=== PATIENT | male | born 1945 | race Caucasian/White ===

== ENCOUNTER 2016-06-09 17:28 | Emergency (ER) | payer MEDICARE, BC ==
[2016-06-09 17:40] VITALS: BP 162/90
[2016-06-09] MEDS ORDERED: Tetracaine 0.5% 2 ML Bottle EYEBOTH ONE (17:45)
[2016-06-09] MEDS ORDERED: Ciprofloxacin 0.3% Ophth Soln 2.5 ML Bottle EYEBOTH SCH (18:00)
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
== END 2016-06-09 18:08 | disposition home or self-care (01) ==
LOC: CC.ED 17:28
DX: T26.62XA Corrosion of cornea and conjunctival sac, left eye, initial encounter (principal); T26.61XA Corrosion of cornea and conjunctival sac, right eye, initial encounter; E78.00 Pure hypercholesterolemia, unspecified; I10 Essential (primary) hypertension; J45.909 Unspecified asthma, uncomplicated; Z98.890 Other specified postprocedural states; Z88.8 Allergy status to other drugs, medicaments and biological substances
CPT/HCPCS: 99282

== ENCOUNTER → 2017-03-04 | Day surgery (SDC) | payer MEDICARE, BC ==
[~2017-03-04] MED LIST: Lactated Ringers 1,000 ML IV SCH; Propofol 200 MG/20 ML SDV IV ONE
--- NOTE | 2017-03-04 08:00 | OR ---
DATE OF OPERATION: 03/04/2017 PREOPERATIVE DIAGNOSIS: FOLLOW UP POLYPS. POSTOPERATIVE DIAGNOSIS: FOLLOW UP POLYPS. SURGEON: Baljeet Graham MD PROCEDURE: FULL-LENGTH COLONOSCOPY WITH POLYP REMOVAL X3. ANESTHESIA: QUALITY LEAD. COMPLICATIONS: None. SPECIMEN: Hyperplastic polyps x3. FINDINGS: 1. Full-length colonoscopy. 2. Mild sigmoid diverticulosis. 3. Hyperplastic polyps x3. RECOMMENDATIONS: Follow up colonoscopy in 5-7 years pending path reports. INDICATIONS: The patient has a history of polyps removed in the past. He is due for a routine followup colonoscopy. DESCRIPTION OF PROCEDURE: The patient is prepped and draped, placed in the left lateral decubitus position. A lubricated Olympus colonoscope was inserted and easily advanced to the cecum. Direct visualization of the ileocecal valve and appendiceal orifice was accomplished. The bowel prep was excellent. Upon withdrawal of the scope, the cecum and ascending colon were benign. For the most part, transverse colon was unremarkable; at its most distal portion there was a small flat hyperplastic polyp removed in its entirety with cold forceps biopsy x2. The descending colon was unremarkable. The patient does have a few scattered diverticula through the sigmoid area, very mild in severity. At the distal portion of the sigmoid colon, there was another flat polyp with the appearance of hyperplastic polyp; also removed in its entirety with a cold forceps x2. There were no other signs of colitis, vascular abnormality, or bleeding sites. No inflammatory changes around his diverticula. In the rectal vault, there were two small hyperplastic polyps, right next to one another, both removed with forceps biopsy. Retroflexion of scope in the rectum showed no perianal regions. Air was then suctioned and the scope removed without complication. ANGELA/HAYLIE /[id number]
[2017-03-04 08:02] VITALS: BP 137/79
== END ==
LOC: CC.SDS 06:19
PROVIDERS: ATTEND Family Medicine
DX: Z12.11 Encounter for screening for malignant neoplasm of colon (principal); K63.5 Polyp of colon; K62.1 Rectal polyp; K57.30 Diverticulosis of large intestine without perforation or abscess without bleeding; N40.0 Benign prostatic hyperplasia without lower urinary tract symptoms; E78.00 Pure hypercholesterolemia, unspecified; I10 Essential (primary) hypertension; Z86.010 Personal history of colon polyps; Z88.8 Allergy status to other drugs, medicaments and biological substances; Z91.09 Other allergy status, other than to drugs and biological substances; Z79.899 Other long term (current) drug therapy
CPT/HCPCS: 45380; J2704; J7120; 00810; 88305

== ENCOUNTER 2021-03-06 14:07 | Emergency (ER) | payer MEDICARE, BC ==
[2021-03-06 14:42] VITALS: BP 187/90; PULSE 95
[2021-03-06] MEDS ORDERED: Take Home: predniSONE 20 MG, 2 Tab Pack PO ONE (14:55)
--- NOTE | 2021-03-06 15:01 | EDM.PDOC ---
ED HPI GENERAL MEDICAL PROBLEM - General Chief Complaint: General Stated Complaint: cough, sore throat Time Seen by Provider: 03/06/21 14:50 Source of Information: Reports: Patient History Limitations: Reports: No Limitations - History of Present Illness INITIAL COMMENTS - FREE TEXT/NARRATIVE: Mr. Kinsey is a pleasant 75-year-old male patient that presents to the emergency department having complaints of what he believes may be bronchitis. Patient states his symptoms have gradually worsened over the last couple weeks. Does have an occasional cough. States that he has kind of a sensation from his throat area down to his stomach "feels like bronchitis." Patient states that he does have a history of allergies in which he receives allergy shots. Patient denies fever or chills. States that this does not feel like indigestion or heartburn. Denies significant shortness of breath although does get a little shortness of breath with exertion. Patient has tried several [id number] cold and flu remedies such as DayQuil and NyQuil with little to no relief. Denies exposure to anyone that is tested positive with Covid or influenza. Reports he has also had fullness or pressure in both ears. Onset: Gradual Duration: Week(s): Location: Reports: Other (throat) Quality: Reports: Burning Severity: Mild Improves with: Reports: None Worsens with: Reports: None Associated Symptoms: Reports: Cough. Denies: Fever/Chills, Loss of Appetite - Related Data Allergies Allergy/AdvReac Type Severity Reaction Status Date / Time piroxicam [From Feldene] Allergy Hives Verified 03/06/21 14:33 Home Meds: Home Meds Acetaminophen/Caffeine [Excedrin Tension Headache] 1 tab PO ASDIRECTED PRN 09/27/13 [History] Ascorbate Calcium [Vitamin C] 500 mg PO DAILY 09/27/13 [History] Aspirin [Adult Low Dose Aspirin EC] 81 mg PO DAILY 09/27/13 [History] Ubidecarenone [Co Q-10] 50 mg PO DAILY 09/27/13 [History] Vitamin B Complex [B-100 Complex] 100 mg PO DAILY 09/27/13 [History] Vitamin E 400 unit PO DAILY 09/27/13 [History] Acetaminophen [Tylenol Extra Strength] 500 mg PO Q4H PRN #0 tablet 03/24/15 [Rx] Albuterol [Proventil Neb Soln] 2.5 mg INH Q6H PRN #20 neb 03/24/15 [Rx] Allopurinol [Zyloprim] 300 mg PO DAILY 06/09/16 [History] Acetaminophen/Diphenhydramine [Tylenol Pm Ex-Strength Caplet] 2 tab PO BEDTIME 03/03/17 [History] Cholecalciferol (Vitamin D3) [Vitamin D3] 2,000 units PO DAILY 03/03/17 [History] Colchicine 0.6 mg PO DAILY PRN 03/03/17 [History] Doxazosin Mesylate [Cardura] 8 mg PO DAILY 03/03/17 [History] Folic Acid 0.8 mg PO DAILY 03/03/17 [History] Glutathione [l-Glutathione] 25 gm MC DAILY 03/03/17 [History] Ibuprofen 200 mg PO DAILY 03/03/17 [History] Prasterone (DHEA)/Calcium Carb [DHEA 50 MG] 50 mg PO DAILY 03/03/17 [History] amLODIPine [Norvasc] 10 mg PO BEDTIME 03/03/17 [History] oxyCODONE HCl/Acetaminophen [Endocet 5-325 Tablet] 1 tab PO Q6H PRN 03/03/17 [History] Past Medical History Cardiovascular History: Reports: High Cholesterol, Hypertension Respiratory History: Reports: Asthma, Bronchitis, Recurrent Gastrointestinal History: Reports: Colon Polyp Musculoskeletal History: Reports: Gout, Other (See Below) Other Musculoskeletal History: fx clavical, and hx cannot remember Neurological History: Reports: Concussion - Past Surgical History HEENT Surgical History: Reports: Tonsillectomy GI Surgical History: Reports: Colonoscopy Musculoskeletal Surgical History: Reports: Knee Replacement, Shoulder Repl acement, Other (See Below) Other Musculoskeletal Surgeries/Procedures:: Left clavicle plate and pinning. L shoulder TSA 10/30. R shoulder TSA 01/30 Social & Family History - Family History Family Medical History: No Pertinent Family History - Tobacco Use Tobacco Use Status *Q: Never Tobacco User Second Hand Smoke Exposure: No ED ROS GENERAL - Review of Systems Review Of Systems: Comprehensive ROS is negative, except as noted in HPI. ED EXAM, GENERAL - Physical Exam Exam: See Below Exam Limited By: No Limitations General Appearance: Alert, WD/WN, No Apparent Distress Ears: Normal External Exam, Normal Canal, Hearing Grossly Normal, Normal TMs Nose: Normal Inspection, Normal Mucosa, No Blood, Clear Rhinorrhea Throat/Mouth: Normal Inspection, Normal Oropharynx, Normal Voice, No Airway Compromise, Other (Erythema). No: Inflammation Head: Atraumatic, Normocephalic Neck: Normal Inspection, Supple Respiratory/Chest: No Respiratory Distress, Lungs Clear, Normal Breath Sounds, No Accessory Muscle Use Cardiovascular: Normal Peripheral Pulses, Regular Rate, Rhythm, No Gallop, No M urmur, No Rub GI/Abdominal: Normal Bowel Sounds, Soft, Non-Tender, No Organomegaly, No Distention, No Mass (Male) Exam: Deferred Rectal (Males) Exam: Deferred Back Exam: Normal Inspection Extremities: Normal Inspection, Normal Range of Motion, No Pedal Edema Neurological: Alert, Oriented (The phone scared me), Normal Cognition Psychiatric: Normal Affect, Normal Mood Skin Exam: Warm, Dry, Intact, Normal Color, No Rash Course - Vital Signs Last Recorded V/S: Last Vital Signs Temp 98.2 F 03/06/21 14:34 Pulse 95 03/06/21 14:34 Resp 18 03/06/21 14:34 BP 187/90 H 03/06/21 14:34 Pulse Ox 96 03/06/21 14:34 - Orders/Labs/Meds Orders: Active Orders 24 hr Category Date Time Status Isolation [COMM] Routine Oth 03/06/21 14:11 Active Labs: Laboratory Tests 03/06/21 Range/Units 14:11 SARS CoV-2 RNA Rapid EDWARD Negative (NEGATIVE) Meds: Medications Discontinued Medications Generic Name Dose Route Start Last Admin Trade Name Ruddy PRN Reason Stop Dose Admin Prednisone 2 packet 03/06/21 14:55 Take Home: Prednisone 20 Mg, 2 Tab Pack PO 03/06/21 14:56 ONETIME ONE - Re-Assessments/Exams Free Text/Narrative Re-Assessment/Exam: This is a 75 male patient presented to the ER with complaints of possible bronchitis. Patient has had increased cough and some discomfort from his throat area through the middle of his chest. States he does have a history of allergies. Covid, influenza, strep test were obtained and all were subsequently negative. Upon assessment signs are consistent with allergic bronchitis. Vaishali ent does have history of allergies. For symptom relief will prescribe prednisone 20 mg once daily for the next 4 days. Patient should monitor his symptoms if they become worse it is recommended that he be reassessed in the emergency department or with his primary care provider. He should monitor for more systemic signs of illness such as fever or significant shortness of breath. Patient was advised to take his [id number] allergy medication that may assist with symptom management. Also recommended to stay hydrated by drinking plenty of oral fluids. May also take Tylenol or ibuprofen for discomfort. Departure - Departure Time of Disposition: 14:58 Disposition: Home, Self-Care 01 Condition: Good Clinical Impression: Bronchitis - Discharge Information *PRESCRIPTION DRUG MONITORING PROGRAM REVIEWED*: Not Applicable *COPY OF PRESCRIPTION DRUG MONITORING REPORT IN PATIENT RICKEY: Not Applicable Instructions: Acute Bronchitis, Adult Forms: ED Department Discharge Additional Instructions: 1. Take 20 mg of prednisone once daily for the next 4 days. 2. Make sure you are drinking plenty of fluids. 3. May take Tylenol and ibuprofen for discomfort. 4. Would recommend that you take your allergy medication that you have prescribed. 5. Monitors for more systemic signs of infection such as fever, chills, significant shortness of breath. 6. Symptoms persist you may follow-up with your primary care provider in the clinic. 7. If symptoms are worse or if you have any questions please return or call the emergency department. Sepsis Event Note (ED) - Evaluation Sepsis Screening Result: No Definite Risk - Focused Exam Vital Signs: Vital Signs Temp Pulse Resp BP Pulse Ox 03/06/21 14:34 98.2 F 95 18 187/90 H 96
== END 2021-03-06 15:12 | disposition home or self-care (01) ==
LOC: CC.ED 14:07
DX: J40 Bronchitis, not specified as acute or chronic (principal); E78.00 Pure hypercholesterolemia, unspecified; I10 Essential (primary) hypertension; M10.9 Gout, unspecified; Z88.8 Allergy status to other drugs, medicaments and biological substances; Z79.899 Other long term (current) drug therapy
CPT/HCPCS: 87430; 87804; 99283; J7512; U0002

== ENCOUNTER 2024-05-04 06:51 | Day surgery (SDC) | payer MEDICARE, OTHER ==
[2024-05-04] MEDS: Lactated Ringers 1,000 ML IV SCH (07:13)
[2024-05-04] MEDS ORDERED: Propofol 200 MG/20 ML SDV ONE ×2 (07:25)
[2024-05-04] MEDS ORDERED: Ketamine 200 MG/20 ML MDV ONE (07:25)
[2024-05-04] MEDS ORDERED: Midazolam 1 MG/ML 2 ML SDV ONE (07:25)
[2024-05-04] MEDS ORDERED: fentaNYL 50 MCG/ML SDV ONE (07:25)
[2024-05-04 11:16] VITALS: BP 140/74; PULSE 66
== END 2024-05-04 09:19 | disposition home or self-care (01) ==
LOC: CC.SDS 06:51
PROVIDERS: ATTEND Family Medicine
DX: Z12.11 Encounter for screening for malignant neoplasm of colon (principal); D12.2 Benign neoplasm of ascending colon; D12.3 Benign neoplasm of transverse colon; K62.1 Rectal polyp; K57.30 Diverticulosis of large intestine without perforation or abscess without bleeding; I10 Essential (primary) hypertension; K21.9 Gastro-esophageal reflux disease without esophagitis; E78.5 Hyperlipidemia, unspecified; N40.0 Benign prostatic hyperplasia without lower urinary tract symptoms; M10.9 Gout, unspecified; Z79.899 Other long term (current) drug therapy; Z86.0100 Personal history of colon polyps, unspecified
CPT/HCPCS: 00811; 45380; 45381; 45385; 88305; 99100; J2250; J2704; J3010; J3490; J7120